=== PATIENT | female | born 1985 | race Hispanic/Latino ===

== ENCOUNTER 2019-04-13 06:21 | Day surgery (SDC) | payer MEDICAID ==
[2019-04-13] MEDS ORDERED: NACL 0.9% 1000 ML 1,000 ML IV SCH (07:00)
[2019-04-13] MEDS ORDERED: XYLOCAINE 2% INFILTRATI ONE (07:26)
[2019-04-13] MEDS ORDERED: VERSED ONE (07:26)
[2019-04-13] MEDS ORDERED: DIPRIVAN 10 MG/ML IV ONE (07:26)
--- NOTE | 2019-04-13 08:16 | Anesthesia Day of Surgery ---
Anesthesia Day of Surgery - Day of Surgery Patient Examined: Yes Patient H&P Reviewed: Yes Patient is NPO: Yes
--- NOTE | 2019-04-13 08:16 | Anesthesia Consultation ---
Anesthesia Consult and Med Hx Date of service: 04/13/19 - Airway Anesthetic Teeth Evaluation: Good ROM Head & Neck: Adequate Mental/Hyoid Distance: Adequate Mallampati Class: Class II Intubation Access Assessment: Possibly Difficult - Pulmonary Exam CTA: Yes - Cardiac Exam Cardiac Exam: RRR - Pre-Operative Health Status ASA Pre-Surgery Classification: ASA3 Proposed Anesthetic Plan: MAC - Pulmonary Hx Smoking: No Hx Asthma: Yes Hx Respiratory Symptoms: No Hx Sleep Apnea: Yes (compliant with CPAP) - Cardiovascular System Hx Hypertension: Yes (did not take antihypertensives today) Hx Heart Attack/AMI: No Hx Cardia Arrhythmia: No (hx palpitations without associated symptoms. Last episode "a long time ago") - Central Nervous System Hx Seizures: No CVA: No Hx Back Pain: Yes - Gastrointestinal Hx Gastroesophageal Reflux Disease: No - Endocrine Hx Renal Disease: No Hx Liver Disease: No Hx Insulin Dependent Diabetes: No Hx Non-Insulin Dependent Diabetes: No Hx Thyroid Disease: No - Hematic Hx Anemia: Yes - Other Systems Hx Obesity: Yes (BMI 52) - Additional Comments Anesthesia Medical History Comments: No hx anesthetic complications.
[2019-04-13] MEDS ORDERED: WATER FOR IRRIG STERILE IR ONE (09:23)
--- NOTE | 2019-04-13 09:39 | Operative Report ---
PREOPERATIVE DIAGNOSIS: Morbid obesity. POSTOPERATIVE DIAGNOSIS: Small hiatal hernia. PROCEDURE: EGD with biopsies. ANESTHESIA: MAC. COMPLICATIONS: None. SPECIMENS: Antral biopsies. BLEEDING: Minimal. INDICATIONS: The patient is a 34-year-old female with a history of morbid obesity. She is here for a preoperative EGD. Informed consent was obtained. DESCRIPTION OF PROCEDURE: The patient was brought to the operating suite where she was placed in the left lateral decubitus position and underwent MAC anesthesia. A bite block was placed and a timeout was called. A standard adult gastroscope was inserted into the oropharynx, down the esophagus, into the stomach and the first portion of the duodenum. On retroflexion view, she was noted to have a small type 1 sliding hiatal hernia, less than 1 cm. There were no other abnormalities. Biopsies were taken of the antrum for H. pylori. After this, the air was suctioned out. The gastroscope was removed. The patient tolerated the procedure well with no immediate complications and was transferred to the PACU in stable condition. JOB# [id number] FREDDIE/ANJANA
[2019-04-13 10:20] VITALS: BP 101/65
== END 2019-04-13 06:22 | disposition home or self-care (01) ==
LOC: GIO 06:21
PROVIDERS: ATTEND Specialist
DX: K29.50 Unspecified chronic gastritis without bleeding (principal); I10 Essential (primary) hypertension; G47.33 Obstructive sleep apnea (adult) (pediatric); K44.9 Diaphragmatic hernia without obstruction or gangrene; E66.01 Morbid (severe) obesity due to excess calories; J45.909 Unspecified asthma, uncomplicated; Z88.1 Allergy status to other antibiotic agents; Z79.899 Other long term (current) drug therapy; Z68.43 Body mass index [BMI] 50.0-59.9, adult; Z98.51 Tubal ligation status; Z98.890 Other specified postprocedural states
CPT/HCPCS: 43239; 81025; 88305; 88342; J2250; J2704; J7030

== ENCOUNTER 2019-04-27 06:26 | Inpatient (IN) | payer MEDICAID ==
[2019-04-27] MEDS ORDERED: NACL BACTERIOSTATIC INFILTRATI ONE (07:09)
--- NOTE | 2019-04-27 07:17 | Anesthesia Consultation ---
Anesthesia Consult and Med Hx Date of service: 04/27/19 - Airway Anesthetic Teeth Evaluation: Good ROM Head & Neck: Adequate Mental/Hyoid Distance: Adequate Mallampati Class: Class II Intubation Access Assessment: Good - Pre-Operative Health Status ASA Pre-Surgery Classification: ASA3 Proposed Anesthetic Plan: General - Pulmonary Hx Smoking: Yes Hx Asthma: Yes Hx Respiratory Symptoms: No SOB: Yes Hx Sleep Apnea: Yes - Cardiovascular System Hx Hypertension: Yes (2015) Hx Heart Attack/AMI: No Hx Cardia Arrhythmia: No (hx palpitations without associated symptoms. Last episode "a long time ago") - Central Nervous System Hx Seizures: No CVA: No Hx Back Pain: Yes Hx Psychiatric Problems: Yes - Gastrointestinal Hx Gastroesophageal Reflux Disease: Yes (SEVERE; HIATAL HERNIA) - Endocrine Hx Renal Disease: No Hx Liver Disease: No Hx Insulin Dependent Diabetes: No Hx Non-Insulin Dependent Diabetes: No Hx Thyroid Disease: No Hx Hypothyroidism: Yes (MILD, NO RX) - Hematic Hx Anemia: Yes - Other Systems Hx Obesity: Yes
--- NOTE | 2019-04-27 07:17 | Anesthesia Day of Surgery ---
Anesthesia Day of Surgery - Day of Surgery Patient Examined: Yes Patient H&P Reviewed: Yes Patient is NPO: Yes
[2019-04-27] MEDS: REGLAN IV NR ×2 (07:25→16:23)
[2019-04-27] MEDS ORDERED: SUBLIMAZE ONE ×2 (07:26→09:30)
[2019-04-27] MEDS ORDERED: DIPRIVAN 10 MG/ML IV ONE (07:27)
[2019-04-27] MEDS ORDERED: SUBLIMAZE IV PRN (07:30)
[2019-04-27] MEDS ORDERED: ZOFRAN IV PRN ×3 (07:30→08:39)
[2019-04-27] MEDS ORDERED: XYLOCAINE 1% 20 mL ONE (07:35)
[2019-04-27] MEDS ORDERED: MARCAINE-EPI 0.5%-1:200,000 INFILTRATI ONE ×2 (07:35→07:51)
[2019-04-27] MEDS ORDERED: MYLICON PO PRN (07:46)
[2019-04-27] MEDS ORDERED: REGLAN IV PRN (07:46)
[2019-04-27] MEDS ORDERED: XYLOCAINE 1% 20 mL INFILTRATI ONE (07:51)
[2019-04-27] MEDS ORDERED: NACL 0.9% IR ONE ×2 (07:52)
[2019-04-27] MEDS ORDERED: DEXMEDETOMIDINE IV ONE (07:53)
[2019-04-27] MEDS ORDERED: BRIDION IV ONE (07:54)
[2019-04-27] MEDS ORDERED: LOVENOX SUB-Q ONE (07:55)
[2019-04-27] MEDS ORDERED: LOVENOX SUB-Q NR (08:00)
[2019-04-27] MEDS ORDERED: FLAGYL 500 MG/100 ML 500 MG/100 ML BAG IV NR (08:00)
[2019-04-27] MEDS ORDERED: VERSED IV NR (08:00)
[2019-04-27] MEDS ORDERED: TRANSDERM-SCOP TD SCH (08:00)
[2019-04-27] MEDS ORDERED: TRANSDERM-SCOP TD NR (08:00)
[2019-04-27] MEDS ORDERED: ANCEF/STERILE WATER 2 GM/20 ML 2 GM/20 ML SYRINGE IV NR (08:00)
[2019-04-27] MEDS ORDERED: LACTATED RINGERS 1,000 ML IV SCH ×2 (08:00)
[2019-04-27] MEDS ORDERED: MORPHINE IV PRN (08:30)
[2019-04-27] MEDS ORDERED: APRESOLINE IV PRN (08:30)
[2019-04-27] MEDS ORDERED: LEVAQUIN 500MG/100ML 500 MG/100 ML BAG IV ONE (08:34)
[2019-04-27] MEDS ORDERED: XYLOCAINE MPF 2% ONE (09:42)
[2019-04-27] MEDS ORDERED: NEO SYNEPHRINE/NS Syringe(OR USE) IV ONE (09:42)
[2019-04-27] MEDS ORDERED: DECADRON ONE (09:42)
[2019-04-27] MEDS ORDERED: BREVIBLOC IV ONE (09:42)
[2019-04-27] MEDS ORDERED: BLOXIVERZ ONE (09:42)
[2019-04-27] MEDS ORDERED: QUELICIN ONE (09:42)
[2019-04-27] MEDS ORDERED: ZOFRAN ONE (09:42)
[2019-04-27] MEDS ORDERED: ROBINUL ONE (09:42)
[2019-04-27] MEDS ORDERED: ZEMURON IV ONE (09:42)
[2019-04-27] MEDS: NORCO PO PRN ×3 (12:53→20:41)
--- NOTE | 2019-04-27 14:02 | Post Anesthesia Evaluation ---
- Post Anesthesia Evaluation Patient Participated: Yes Airway Patent: Yes Stable Respiratory Function: Yes Nausea/Vomiting: No Temp > 96.8F: Yes Pain Manageable: Yes Adequeate Hydration: Yes Anesthesia Complications: No Block Receding Appropriately: Not Applicable Patient on Ventilator: No
[2019-04-27] MEDS: DILAUDID IV PRN ×2 (18:21→23:16)
[2019-04-27] MEDS: VALIUM PO SCH (21:55)
[2019-04-28] MEDS: DILAUDID IV PRN (03:26)
[2019-04-28 05:22] LABS: Basophils % (Auto) 0.1 % (0.0-1.8); Eosinophils % (Auto) 0.1 % (0.0-4.3); Hematocrit 31.4 % (30.3-42.9); Hemoglobin 10.6 gm/dl (10.1-14.3); Lymphocytes # (Auto) 2.4 K/mm3 (1.2-5.4); Lymphocytes % (Auto) 22.4 % (13.4-35.0); Mean Corpuscular HGB Conc 34 % (30-34); Mean Corpuscular Volume 84 fl (79-97); Monocytes # (Auto) 0.6 K/mm3 (0.0-0.8); Monocytes % (Auto) 5.2 % (0.0-7.3); Platelet Count 398 K/mm3 (140-440); Red Blood Count 3.75 M/mm3 (3.65-5.03); Red Cell Distribution Width 14.9 % (13.2-15.2)
[2019-04-28 05:42] LABS: BUN/Creatinine Ratio 11; Blood Urea Nitrogen 9 mg/dL (7-17); Calcium 8.8 mg/dL (8.4-10.2); Hemolysis Index 1
[2019-04-28] MEDS: NORCO PO PRN ×2 (06:11→10:00)
--- NOTE | 2019-04-28 07:14 | Progress Note ---
Assessment and Plan 34F MO s/p LRYGB #1 sp LRYGB - bariatric CLD - IVFs - encourage ambulation - prn nausea and pain meds - spent a considerable amount of time discussing pain meds with the patient - will give a limited Rx for Vicodin for patient. Printed and in her chart. Subjective Date of service: 04/28/19 Interval history: 34F seen and examined. States first that her right lateral bandages were soaked and the RNs reinforced it and now it feels weird and she has pain over the site. Reports the bandages weighs her down and pulls on her belly when she walks. Also says that she has epigastric pain and the dilaudid works but doesn't last long. She says the norco worked better but the nurses only gave her one dose. She requests a Rx for [place] as she says that the ketorolac Rx she got at preop won't be enough for her. Otherwise, no other acute events. Objective - Exam Narrative Exam: Gen: AAO, NAD Heart: RRR Lungs: CTAB Abd: MO, soft, NT, ND. Bandages present and c/d/i. Large bandage over R lateral side. - Constitutional Vitals: Vital Signs - 12hr 04/28/19 04/28/19 04/28/19 00:39 03:26 06:11 Temperature 98.2 F Pulse Rate 99 H Respiratory 30 H 18 18 Rate Blood Pressure 116/66 O2 Sat by Pulse 94 Oximetry - Labs CBC & Chem 7: 04/28/19 04:16 04/28/19 04:16 Labs: Abnormal lab results 04/28/19 04/28/19 Range/Units 04:16 04:16 Seg Neutrophils % 72.2 H (40.0-70.0) % Seg Neutrophils # 7.8 H (1.8-7.7) K/mm3 Potassium 3.5 L (3.6-5.0) mmol/L Medications & Allergies - Medications Allergies/Adverse Reactions: Allergies ceftriaxone [From Rocephin] Adverse Reaction (Severe, Verified 04/20/19 17:19) Anaphylaxis Home Medications: Home Medications Medication Instructions Recorded Confirmed Last Taken Type Cetirizine HCl [Zyrtec 10mg tab] 10 mg PO DAILY 04/21/19 04/21/19 04/27/19 04:00 History Chlorthalidone [Thalitone] 25 mg PO QDAY 04/21/19 04/21/19 04/26/19 History Desvenlafaxine [Desvenlafaxine ER] 50 mg PO DAILY 04/21/19 04/21/19 04/27/19 04:00 History Fluticasone [Flonase] 1 spray NS QDAY 04/21/19 04/21/19 04/27/19 04:00 History Losartan [Cozaar] 100 mg PO QDAY 04/21/19 04/21/19 04/26/19 History QUEtiapine [SEROquel] 100 mg PO QDAY 04/21/19 04/21/19 04/27/19 04:00 History Ranitidine HCl [Zantac] 300 mg PO DAILY 04/21/19 04/21/19 04/27/19 04:00 History diazePAM [Diazepam] 10 mg PO BID 04/21/19 04/21/19 04/27/19 04:00 History HYDROcodone/ACETAMINOPHEN 1 each PO Q6H PRN 3 Days #8 tablet 04/28/19 Unknown Rx [Hydrocodone-Acetamin 5-300 mg] Active Medications: Generic Name Dose Route Start Last Admin Trade Name Freq PRN Reason Stop Dose Admin Acetaminophen/Hydrocodone Bitart 7.5 mg 04/27/19 08:30 04/28/19 06:11 [place] PO 7.5 mg Q4H PRN Administration Pain, Moderate (4-6) Chlorthalidone 25 mg 04/28/19 10:00 Thalitone PO QDAY MICHAEL Diazepam 10 mg 04/27/19 20:00 04/27/19 21:55 Valium PO 10 mg BID MICHAEL Administration Enoxaparin Sodium 40 mg 04/28/19 10:00 Lovenox SUB-Q QDAY MICHAEL Famotidine 40 mg 04/28/19 10:00 Pepcid PO QDAY MICHAEL Hydralazine HCl 10 mg 04/27/19 08:30 Apresoline IV Q6H PRN SBP > 150 Hydromorphone HCl 0.5 mg 04/27/19 08:30 04/28/19 03:26 Dilaudid IV 0.5 mg Q3H PRN Administration Pain , Severe (7-10) Lactated Ringer's 1,000 mls @ 150 mls/hr 04/27/19 08:00 Lactated Ringers IV DIRECT MICHAEL Losartan Potassium 100 mg 04/28/19 10:00 Cozaar PO QDAY MICHAEL Metoclopramide HCl 10 mg 04/27/19 07:46 Reglan IV Q6H PRN Nausea And Vomiting Ondansetron HCl 4 mg 04/27/19 08:39 Zofran IV Q6H PRN Nausea And Vomiting Quetiapine Fumarate 100 mg 04/27/19 22:00 04/27/19 21:56 Seroquel PO 100 mg QHS MICHAEL Administration Scopolamine 1 each 04/27/19 08:00 04/27/19 13:02 Transderm-Scop TD Not Given Q3D [facility] Simethicone 80 mg 04/27/19 07:46 04/27/19 16:36 Mylicon PO 80 mg Q6H PRN Administration Gas pain
--- NOTE | 2019-04-28 07:17 | Discharge Summary ---
Providers - Providers Date of Admission: 04/27/19 06:26 Date of discharge: 04/28/19 Attending physician: NEENA MARES Hospitalization Reason for admission: postop Condition: Good Procedures: 04/28/19: LRYGB Hospital course: 34F admitted for routine postop care after her operation. She c/o epigastric pain and requested a Vicodin script on discharge home. She states the Ketorolac Rx given at preop won't be enough for her and the norco she is getting in the hospital helps. She also c/o her bandages "feeling heavy" and pulling on her skin. Otherwise, no other acute events. Extensive discussion was had with the patient, a limited script for Vicodin was provided, and she was dc home. Disposition: DC-01 TO HOME OR SELFCARE Core Measure Documentation - Palliative Care Palliative Care/ Comfort Measures: Not Applicable - Core Measures Any of the following diagnoses?: none - VTE Discharge Requirements Deep Vein Thrombosis/Pulmonary Embolism Present on Admission: No - Acute CT Discharge Requirements Aspirin at discharge: No Reason for no aspirin on DC: Surgical contraindication - Heart Failure Discharge Requirements UZMA/ARB for LVSD if EF <40%: Not Applicable - Stroke Discharge Requirements Statin for LDL = or >70 mg/dl on DC: Not Applicable Exam - Physical Exam Narrative exam: Gen: AAO, NAD Heart: RRR Lungs: CTAB Abd: MO, soft, NT, ND. Bandages present and c/d/i. Large bandage over R lateral side. - Constitutional Vitals: Temp Pulse Resp BP Pulse Ox 98.2 F 99 H 18 116/66 94 04/28/19 00:39 04/28/19 00:39 04/28/19 06:11 04/28/19 00:39 04/28/19 00:39 Plan Diet: clear liquids Wound: keep clean and dry Additional Instructions: Cr Mares as scheduled Follow up with: AMPARO ARENAS [Other] - 7 Days Prescriptions: HYDROcodone/ACETAMINOPHEN [Hydrocodone-Acetamin 5-300 mg] 1 each PO Q6H PRN 3 Days #8 tablet PRN Reason: Pain , Severe (7-10)
[2019-04-28 08:19] VITALS: BP 90/45
[2019-04-28] MEDS: LOVENOX SUB-Q SCH ×2 (08:20→10:14)
[2019-04-28] MEDS: VALIUM PO SCH ×2 (08:23→10:12)
[2019-04-28] MEDS ORDERED: THALITONE PO SCH (10:00)
[2019-04-28] MEDS ORDERED: PEPCID PO SCH (10:00)
[2019-04-28] MEDS ORDERED: COZAAR PO SCH (10:00)
== END 2019-04-28 10:49 | disposition home or self-care (01) | DRG 621 ==
LOC: 3A 06:26 → EDSTATUS 09:45 → 3B-SURG 10:47
PROVIDERS: ADMIT Specialist; ATTEND Specialist
PROC: 0D164ZA Bypass Stomach to Jejunum, Percutaneous Endoscopic Approach (ICD-10-PCS; principal; 2019-04-27)
PROC: 0BQT4ZZ Repair Diaphragm, Percutaneous Endoscopic Approach (ICD-10-PCS; 2019-04-27)
PROC: 0DJ08ZZ Inspection of Upper Intestinal Tract, Via Natural or Artificial Opening Endoscopic (ICD-10-PCS; 2019-04-27)
DX: E66.01 Morbid (severe) obesity due to excess calories (principal); J45.909 Unspecified asthma, uncomplicated; I10 Essential (primary) hypertension; E03.9 Hypothyroidism, unspecified; G47.30 Sleep apnea, unspecified; Z68.43 Body mass index [BMI] 50.0-59.9, adult; K30 Functional dyspepsia; K44.9 Diaphragmatic hernia without obstruction or gangrene; K21.9 Gastro-esophageal reflux disease without esophagitis; Z87.891 Personal history of nicotine dependence
CPT/HCPCS: 36415; 80048; 81025; 85025; G0378; A4217; J0330; J0690; J1100; J1170; J1650; J1956; J2250; J2370; J2405; J2704; J2710; J2765; J3010; J3490; J7120